=== PATIENT | female | born 1970 | race Caucasian/White ===

== ENCOUNTER 2018-02-28 16:23 | Inpatient (IN) | payer OTHER ==
[~2018-02-28] VITALS: Ht 167.6 cm; Wt 97.8 kg
[2018-02-28 17:05] LABS: BASOPHILS # (AUTO) 0.07 x10^3/uL (0-0.1); BASOPHILS % (AUTO) 1 % (0-1); EOSINOPHILS # (AUTO) 0.23 x10^3/uL (0-0.4); EOSINOPHILS % (AUTO) 2 % (1-7); LYMPHOCYTES # (AUTO) 2.09 x10^3/uL (1-3.4); LYMPHOCYTES % (AUTO) 16 % (22-44); MD NO; MEAN CORPUSCULAR HGB CONC 34.5 g/dL (32.4-35.8); MEAN CORPUSCULAR VOLUME 95.6 fL (80-100); MEAN PLATELET VOLUME 8.4 fL (7.4-10.4); MONOCYTES # (AUTO) 0.94 x10^3/uL (0.2-0.8); MONOCYTES % (AUTO) 7 % (2-9); NEUTROPHILS # (AUTO) 10.17 x10^3/uL (1.8-6.8); NEUTROPHILS % (AUTO) 75 % (42-75); PLATELET COUNT 268 x10^3/uL (130-400); RED BLOOD COUNT 4.94 x10^6/uL (3.82-5.3); RED CELL DISTRIBUTION WIDTH 13.5 % (9.6-15.2)
[2018-02-28 17:16] LABS: ALBUMIN 3.7 g/dL (3.4-5.0); ANION GAP 9 mmol/L (5-15); CHLORIDE 109 mmol/L (98-107)
[2018-02-28 17:19] LABS: ALANINE AMINOTRANSFERASE 46 U/L (12-78); ALKALINE PHOSPHATASE 87 U/L (45-117); BILIRUBIN,TOTAL 0.6 mg/dL (0.2-1.0); CREATININE 0.93 mg/dL (0.55-1.02); TOTAL PROTEIN 7.4 g/dL (6.4-8.2)
[2018-02-28] MEDS ORDERED: SODIUM CHLORIDE 0.9% 1,000ML IVBOLUS ONE (17:30)
[2018-02-28] MEDS ORDERED: KETOROLAC 30 MG/1 ML ONE (17:42)
[2018-02-28] MEDS ORDERED: METOCLOPRAMIDE 5 MG/ML, 2ML ONE (17:42)
[2018-02-28] MEDS ORDERED: METOCLOPRAMIDE 5 MG/ML, 2ML IVPush ONE (18:00)
[2018-02-28] MEDS ORDERED: SODIUM CHLORIDE FLUSH 10ML SYR IVF ONE (18:00)
[2018-02-28] MEDS ORDERED: KETOROLAC 30 MG/1 ML IVPush ONE (18:00)
[2018-02-28] MEDS ORDERED: DIPHENHYDRAMINE 50 MG/ML, 1ML IVPush ONE (18:00)
[2018-02-28] MEDS ORDERED: OMNIPAQUE 350 MG/ML, 100ML BOTTLE ONE (19:17)
[2018-02-28] MEDS ORDERED: HEPARIN 5,000 UNITS/ML, 1ML ONE (19:58)
[2018-02-28] MEDS ORDERED: HEPARIN 25,000 UNITS/500ML PMX 500 ML ONE (19:58)
[2018-02-28] MEDS ORDERED: HEPARIN 25,000 UNITS/500ML PMX 500 ML IV PRN (20:00)
[2018-02-28] MEDS ORDERED: HEPARIN 5,000 UNITS/ML, 1ML IV ONE (20:00)
[2018-02-28] MEDS ORDERED: LEVO137T2 PO (20:28)
[2018-02-28] MEDS ORDERED: MAGN27TA3 PO (20:28)
[2018-02-28] MEDS ORDERED: NORE1TAB85 PO (20:28)
[2018-02-28] MEDS ORDERED: TRAZ-136 PO (20:28)
[2018-02-28 21:13] VITALS: BP 163/118
[2018-02-28] MEDS ORDERED: SODIUM CHLORIDE 0.9% 1,000 ML IV SCH (21:45)
[2018-02-28 21:58] VITALS: BP 160/125
[2018-02-28] MEDS ORDERED: ONDANSETRON 2MG/ML, 2ML IVPush PRN (22:00)
[2018-02-28] MEDS ORDERED: DOCUSATE 100 MG CAPSULE PO PRN (22:00)
[2018-02-28] MEDS ORDERED: ONDANSETRON ODT 4 MG PO PRN (22:00)
[2018-02-28] MEDS ORDERED: hydrALAzine 20 MG/ML, 1ML IVPush PRN (22:00)
[2018-02-28] MEDS ORDERED: POLYETHYLENE GLYCOL 17 GM PACKET PO PRN (22:00)
[2018-02-28] MEDS ORDERED: BISACODYL 10 MG SUPP PR PRN (22:00)
[2018-02-28] MEDS ORDERED: ACETAMINOPHEN 325 MG TABLET PO PRN (22:00)
[2018-02-28] MEDS ORDERED: OXYcodone IR 5MG TABLET PO PRN (22:00)
[2018-02-28] MEDS ORDERED: morphine SULFATE 10 MG/ML, 1ML IVPush PRN (22:00)
[2018-02-28] MEDS ORDERED: PROMETHAZINE 25 MG/ML, 1ML IM PRN (22:00)
[2018-02-28] MEDS ORDERED: GABAPENTIN 300 MG CAPSULE PO PRN (22:00)
[2018-02-28] MEDS: LABETALOL 5MG/ML, 20ML IVPush PRN (22:17)
[2018-02-28 22:26] LABS: HEMOGLOBIN A1C 5.3 % (4.2-6.3)
[2018-02-28 22:33] LABS: FREE T4 (FREE THYROXINE) 1.23 ng/dL (0.76-1.46); THYROID STIMULATING HORMONE 1.24 mIU/L (0.358-3.740)
[2018-02-28 23:11] VITALS: BP 126/90
[2018-03-01 00:09] LABS: TROPONIN I 0.069 ng/mL (0.000-0.045)
[2018-03-01] MEDS: TRAZODONE 50MG TABLET PO SCH ×2 (00:48→22:54)
[2018-03-01 01:52] LABS: MICROSCOPIC INDICATED
[2018-03-01 02:03] LABS: CULTURE INDICATED? ORDERED BY PHYSICIAN
[2018-03-01 03:05] VITALS: BP 99/76
[2018-03-01] MEDS: HEPARIN 5,000 UNITS/ML, 1ML IV PRN ×3 (03:40→17:12)
[2018-03-01 05:09] LABS: ALANINE AMINOTRANSFERASE 37 U/L (12-78); ALBUMIN 2.9 g/dL (3.4-5.0); ANION GAP 8 mmol/L (5-15); CHLORIDE 116 mmol/L (98-107); CHOLESTEROL, TOTAL 149 mg/dL (140-239); CREATININE 0.97 mg/dL (0.55-1.02)
[2018-03-01 05:10] LABS: BASOPHILS # (AUTO) 0.03 x10^3/uL (0-0.1); BASOPHILS % (AUTO) 0 % (0-1); EOSINOPHILS # (AUTO) 0.21 x10^3/uL (0-0.4); EOSINOPHILS % (AUTO) 2 % (1-7); LYMPHOCYTES % (AUTO) 20 % (22-44); MD NO; MEAN CORPUSCULAR HEMOGLOBIN 32.5 pg (27.0-34.8); MEAN CORPUSCULAR HGB CONC 34.1 g/dL (32.4-35.8); MEAN CORPUSCULAR VOLUME 95.2 fL (80-100); MEAN PLATELET VOLUME 8.6 fL (7.4-10.4); MONOCYTES # (AUTO) 0.73 x10^3/uL (0.2-0.8); MONOCYTES % (AUTO) 8 % (2-9); NEUTROPHILS # (AUTO) 6.41 x10^3/uL (1.8-6.8); NEUTROPHILS % (AUTO) 70 % (42-75); PLATELET COUNT 247 x10^3/uL (130-400); RED BLOOD COUNT 4.31 x10^6/uL (3.82-5.3)
[2018-03-01 05:14] LABS: ALKALINE PHOSPHATASE 74 U/L (45-117); BILIRUBIN,TOTAL 0.3 mg/dL (0.2-1.0); CHOL/HDL RATIO 3.2; HDL CHOL % 32 % (28-40); HDL CHOLESTEROL (DIRECT) 47 mg/dL (40-60); LDL CHOLESTEROL,CALCULATED 69 mg/dL (54-169); LDL/HDL RATIO 1.5 (0.5-3.0); TRIGLYCERIDES 165 mg/dL (50-200); TROPONIN I 0.062 ng/mL (0.000-0.045); VLDL CHOLESTEROL 33 mg/dL (0-25)
[2018-03-01 06:22] VITALS: BP 103/71
[2018-03-01] MEDS: LEVOTHYROXINE 137 MCG TABLET PO SCH (06:26)
[2018-03-01 08:01] VITALS: BP 127/87
[2018-03-01] MEDS: SODIUM CHLORIDE 0.9% 1,000 ML IV SCH (11:23)
[2018-03-01 12:03] VITALS: BP 130/94
[2018-03-01] MEDS: ENOXAPARIN 100 MG/ML SQ SCH (17:50)
[2018-03-01 19:00] VITALS: BP 147/92
[2018-03-02] VITALS (7 sets, daily range): BP systolic 133–170; BP diastolic 85–130
[2018-03-02] MEDS: SODIUM CHLORIDE 0.9% 1,000 ML IV SCH (00:09)
[2018-03-02 05:24] LABS: BASOPHILS # (AUTO) 0.06 x10^3/uL (0-0.1); BASOPHILS % (AUTO) 1 % (0-1); EOSINOPHILS % (AUTO) 5 % (1-7); LYMPHOCYTES # (AUTO) 1.64 x10^3/uL (1-3.4); LYMPHOCYTES % (AUTO) 20 % (22-44); MD NO; MEAN CORPUSCULAR HEMOGLOBIN 32.4 pg (27.0-34.8); MEAN CORPUSCULAR HGB CONC 33.9 g/dL (32.4-35.8); MEAN CORPUSCULAR VOLUME 95.5 fL (80-100); MEAN PLATELET VOLUME 8.3 fL (7.4-10.4); MONOCYTES # (AUTO) 0.74 x10^3/uL (0.2-0.8); MONOCYTES % (AUTO) 9 % (2-9); NEUTROPHILS # (AUTO) 5.49 x10^3/uL (1.8-6.8); NEUTROPHILS % (AUTO) 66 % (42-75); PLATELET COUNT 234 x10^3/uL (130-400); RED BLOOD COUNT 4.31 x10^6/uL (3.82-5.3)
[2018-03-02 05:32] LABS: ALBUMIN 2.9 g/dL (3.4-5.0); ANION GAP 8 mmol/L (5-15); CALCIUM 7.9 mg/dL (8.5-10.1); CHLORIDE 115 mmol/L (98-107)
[2018-03-02 05:36] LABS: ALANINE AMINOTRANSFERASE 45 U/L (12-78); ALKALINE PHOSPHATASE 72 U/L (45-117); BILIRUBIN,TOTAL 0.6 mg/dL (0.2-1.0); TROPONIN I 0.034 ng/mL (0.000-0.045)
[2018-03-02] MEDS: ENOXAPARIN 100 MG/ML SQ SCH ×2 (05:49→17:51)
[2018-03-02] MEDS: LEVOTHYROXINE 137 MCG TABLET PO SCH (05:49)
[2018-03-02] MEDS: LABETALOL 5MG/ML, 20ML IVPush PRN (19:44)
[2018-03-02] MEDS: TRAZODONE 50MG TABLET PO SCH (23:02)
[2018-03-03 01:18] VITALS: BP 149/92
[2018-03-03 05:38] LABS: BASOPHILS # (AUTO) 0.06 x10^3/uL (0-0.1); BASOPHILS % (AUTO) 1 % (0-1); EOSINOPHILS # (AUTO) 0.44 x10^3/uL (0-0.4); EOSINOPHILS % (AUTO) 5 % (1-7); LYMPHOCYTES # (AUTO) 1.91 x10^3/uL (1-3.4); LYMPHOCYTES % (AUTO) 22 % (22-44); MD NO; MEAN CORPUSCULAR HGB CONC 34.2 g/dL (32.4-35.8); MEAN CORPUSCULAR VOLUME 96.3 fL (80-100); MEAN PLATELET VOLUME 8.6 fL (7.4-10.4); MONOCYTES # (AUTO) 0.74 x10^3/uL (0.2-0.8); MONOCYTES % (AUTO) 9 % (2-9); NEUTROPHILS # (AUTO) 5.48 x10^3/uL (1.8-6.8); NEUTROPHILS % (AUTO) 64 % (42-75); PLATELET COUNT 243 x10^3/uL (130-400); RED BLOOD COUNT 4.25 x10^6/uL (3.82-5.3); RED CELL DISTRIBUTION WIDTH 13.5 % (9.6-15.2)
[2018-03-03 05:39] LABS: ALANINE AMINOTRANSFERASE 44 U/L (12-78); ALBUMIN 2.8 g/dL (3.4-5.0); ANION GAP 7 mmol/L (5-15); CALCIUM 8.4 mg/dL (8.5-10.1); CHLORIDE 114 mmol/L (98-107); CREATININE 0.89 mg/dL (0.55-1.02)
[2018-03-03 05:41] LABS: ALKALINE PHOSPHATASE 72 U/L (45-117); BILIRUBIN,TOTAL 0.3 mg/dL (0.2-1.0); TOTAL PROTEIN 5.9 g/dL (6.4-8.2)
[2018-03-03 06:14] VITALS: BP 126/86
[2018-03-03] MEDS: ENOXAPARIN 100 MG/ML SQ SCH (06:15)
[2018-03-03] MEDS: LEVOTHYROXINE 137 MCG TABLET PO SCH (06:15)
[2018-03-03 06:55] VITALS: BP 130/89
[2018-03-03 07:55] LABS: BASOPHILS # (AUTO) 0.05 x10^3/uL (0-0.1); BASOPHILS % (AUTO) 1 % (0-1); EOSINOPHILS # (AUTO) 0.41 x10^3/uL (0-0.4); EOSINOPHILS % (AUTO) 5 % (1-7); LYMPHOCYTES % (AUTO) 22 % (22-44); MD NO; MEAN CORPUSCULAR HEMOGLOBIN 32.3 pg (27.0-34.8); MEAN CORPUSCULAR VOLUME 94.9 fL (80-100); MEAN PLATELET VOLUME 8.1 fL (7.4-10.4); MONOCYTES # (AUTO) 0.61 x10^3/uL (0.2-0.8); MONOCYTES % (AUTO) 8 % (2-9); NEUTROPHILS # (AUTO) 5.21 x10^3/uL (1.8-6.8); NEUTROPHILS % (AUTO) 65 % (42-75); PLATELET COUNT 252 x10^3/uL (130-400); RED BLOOD COUNT 4.37 x10^6/uL (3.82-5.3); RED CELL DISTRIBUTION WIDTH 13.6 % (9.6-15.2)
[2018-03-03 08:05] LABS: ALANINE AMINOTRANSFERASE 49 U/L (12-78); ANION GAP 8 mmol/L (5-15); CALCIUM 8.5 mg/dL (8.5-10.1); CHLORIDE 112 mmol/L (98-107); CREATININE 0.87 mg/dL (0.55-1.02)
[2018-03-03 08:09] LABS: ALKALINE PHOSPHATASE 70 U/L (45-117); BILIRUBIN,TOTAL 0.3 mg/dL (0.2-1.0); TROPONIN I < 0.015 ng/mL (0.000-0.045)
[2018-03-03 13:11] VITALS: BP 155/98
[2018-03-03 14:44] VITALS: BP 135/90
[2018-03-03] MEDS ORDERED: APIX5TAB PO ×2 (15:31→15:32)
[2018-03-03] MEDS ORDERED: APIXABAN 5 MG TABLET PO SCH (21:00)
[2018-03-10] MEDS ORDERED: APIXABAN 5 MG TABLET PO SCH (21:00)
== END 2018-03-03 17:00 | disposition home or self-care (01) | DRG 299 ==
LOC: ED 20:08 → 5SO 20:13 → ED 20:36 → DCLOUNGE 03-03 14:53
PROVIDERS: ADMIT Internal Medicine; ATTEND Internal Medicine
DX: I82.432 Acute embolism and thrombosis of left popliteal vein (principal); I26.92 Saddle embolus of pulmonary artery without acute cor pulmonale; Q60.0 Renal agenesis, unilateral; E03.9 Hypothyroidism, unspecified; F51.04 Psychophysiologic insomnia; R06.89 Other abnormalities of breathing; I51.7 Cardiomegaly; M17.0 Bilateral primary osteoarthritis of knee; Z82.49 Family history of ischemic heart disease and other diseases of the circulatory system; Z90.49 Acquired absence of other specified parts of digestive tract
CPT/HCPCS: 36415; 71275; 80053; 80061; 81001; 83036; 83735; 83880; 84100; 84145; 84439; 84443; 84484; 85025; 85520; 93005; 93306; 93970; 96374; 96375; G0378; J1644; J1650; J1885; Q9967; J1200; J2765; J7030

== ENCOUNTER 2019-01-09 13:26 | Emergency (ER) | payer OTHER ==
[~2019-01-09] VITALS: Ht 166.4 cm; Wt 98.0 kg
[~2019-01-09 13:26] MED LIST: APIX5TAB PO; LEVO137T2 PO; MAGN27TA3 PO; NORE1TAB85 PO; TRAZ50TA66 PO
[2019-01-09 14:02] LABS: BASOPHILS # (AUTO) 0.03 x10^3/uL (0-0.1); BASOPHILS % (AUTO) 0 % (0-1); EOSINOPHILS # (AUTO) 0.24 x10^3/uL (0-0.4); EOSINOPHILS % (AUTO) 3 % (1-7); LYMPHOCYTES # (AUTO) 1.63 x10^3/uL (1-3.4); LYMPHOCYTES % (AUTO) 21 % (22-44); MD NO; MEAN CORPUSCULAR HEMOGLOBIN 33.3 pg (27.0-34.8); MEAN CORPUSCULAR HGB CONC 33.3 g/dL (32.4-35.8); MEAN CORPUSCULAR VOLUME 99.9 fL (80-100); MEAN PLATELET VOLUME 7.9 fL (7.4-10.4); MONOCYTES # (AUTO) 0.54 x10^3/uL (0.2-0.8); MONOCYTES % (AUTO) 7 % (2-9); NEUTROPHILS # (AUTO) 5.28 x10^3/uL (1.8-6.8); NEUTROPHILS % (AUTO) 69 % (42-75); PLATELET COUNT 309 x10^3/uL (130-400); RED BLOOD COUNT 4.47 x10^6/uL (3.82-5.3); RED CELL DISTRIBUTION WIDTH 13.6 % (9.6-15.2)
[2019-01-09 14:10] LABS: INTERNATIONAL NORMALIZED RATIO 0.97 (0.93-1.1); PROTHROMBIN TIME 10.2 Seconds (9.6-11.5)
[2019-01-09 14:13] LABS: ALBUMIN 3.4 g/dL (3.4-5.0); ANION GAP 6 mmol/L (5-15); CALCIUM 8.8 mg/dL (8.5-10.1); CHLORIDE 108 mmol/L (98-107)
[2019-01-09 14:19] LABS: ALANINE AMINOTRANSFERASE 28 U/L (12-78); ALKALINE PHOSPHATASE 85 U/L (45-117); BILIRUBIN,TOTAL 0.3 mg/dL (0.2-1.0); CREATININE 0.83 mg/dL (0.55-1.02); TOTAL PROTEIN 6.8 g/dL (6.4-8.2); TROPONIN I < 0.015 ng/mL (0.000-0.045)
--- NOTE | 2019-01-09 14:34 | NUR ---
CHARGE NURSE: PT FROM LOBBY TO ROOM
--- NOTE | 2019-01-09 14:50 | NUR ---
SOB AND PALPITATIONS X 2 WEEKS WITH FATIGUE, LIGHT HEADEDNESS AND DIZZINESS. HX OF PE 2017, ON ELIQUIS. PT VSS, ATTACHED TO ALL MONITORS. ERMD AT BEDSIDE FOR ASSESSMENT. NO ACUTE DISTRESS NOTED.
[2019-01-09] MEDS ORDERED: MULT-658 PO (14:53)
[2019-01-09 15:47] LABS: MICROSCOPIC NOT IND
--- NOTE | 2019-01-09 15:51 | NUR ---
PT RESTING QUIETLY ON BED W/ SIDE RAILS UP X2. STATES "I FEEL THE SAME WHEN I CAME IN".
[2019-01-09 15:59] LABS: CULTURE INDICATED? NO
[2019-01-09 16:22] VITALS: BP 134/92
== END 2019-01-09 16:34 | disposition home or self-care (01) ==
LOC: ED 16:18
DX: R06.00 Dyspnea, unspecified (principal); R42 Dizziness and giddiness; E03.9 Hypothyroidism, unspecified; Z86.718 Personal history of other venous thrombosis and embolism
CPT/HCPCS: 36415; 80053; 81003; 84484; 85025; 85379; 85610; 85730; 93005; 99284

== ENCOUNTER → 2019-08-09 | Outpatient (CLI) | payer OTHER ==
[~2019-08-09] MED LIST changes: +MULT-658 PO; +OMNIPAQUE 350 MG/ML, 100ML BOTTLE ONE
[2019-08-09 15:32] LABS: CREATININE 0.68 mg/dL (0.55-1.02)
== END | disposition home or self-care (01) ==
LOC: RAD 14:20
PROVIDERS: ATTEND Nurse Practitioner
DX: R05 Cough (principal); Z86.711 Personal history of pulmonary embolism
CPT/HCPCS: 36415; 71275; 82565; Q9967